=== PATIENT | female | born 1990 | race Caucasian/White ===

== ENCOUNTER 2016-04-19 20:10 | Emergency (ER) | payer OTHER ==
[~2016-04-19 20:10] MED LIST: IBUPROFEN800 M1 PO; MEDROL4 M2 PO; VICODIN 5-3001 EACH PO
--- NOTE | 2016-04-19 21:44 | ED HAND/WRIST INJURY COMPLAINT ---
History of Present Illness General Chief Complaint: Upper Extremity Injury Stated Complaint: DOG BITE TO LEFT WRIST UNABLE TO MOVE Source: patient Exam Limitations: no limitations Vital Signs & Intake/Output Vital Signs & Intake/Output Vital Signs Date Time Temp Pulse Resp B/P Pulse O2 O2 Flow FiO2 Ox Delivery Rate 04/19 2227 97.8 80 18 128/72 98 Room Air 04/19 2019 80 22 132/76 98 Allergies Coded Allergies: NO KNOWN ALLERGIES (06/16/15) Reconcile Medications Amoxicillin/Potassium Clav (Augmentin 875-125 Tablet) 875 MG-125 MG TABLET 1 TAB PO BID dog bite prophylaxis Hydrocodone/Acetaminophen (Vicodin 5-300 MG Tablet) 1 EACH TABLET 1 TAB PO Q6HR PRN PAIN Ibuprofen 800 MG TABLET 1 TAB PO Q8 PRN PAIN Ibuprofen 800 MG TABLET 1 TAB PO TID PRN PAIN Methylprednisolone. (Medrol) 4 MG TAB.DS.PK 1 DP PO AD FOOT PAIN 6 on day 1 then reduce by one tablet daily until gone Triage Note: PER PT BIT BY OWN DOG DOWN TO BONE OF L WRIST PER PT TEETH DOWN TO BONE, PUPPY IS ABOUT 11 MONTHS OLD VERY FINE SUPERFICIAL [place] TO L WRIST. PER PT DOG IS UPD. PT UNSURE OF TETANUS. LMP 1.5-2 WEEKS AGO Triage Nurses Notes Reviewed? yes : No Patient currently breastfeeds: No HPI: Patient is a 25-year-old female presents complaining of left wrist pain status post dog bite injury. Patient reports her dog bit her this evening. Pain is throbbing pain currently severe, worsens with movement and palpation. Patient reports that her dog weighs approximately 40 pounds, was chewing on something that wasn't supposed to when she went to take it when the dog bit her. Patient' s jaw locked onto the patient's wrist when this occurred. Patient is right-hand dominant. Last tetanus immunization was within the last 5 years. Dog is up-to- date with its rabies vaccinations. (DEBORAH DAS,LUIS) Past History Travel History Traveled to [place] past 21 day No Medical History Any Pertinent Medical History? see below for history Neurological: NONE EENT: NONE Cardiovascular: NONE Respiratory: asthma Gastrointestinal: irritable bowel syndrome Hepatic: NONE Renal: NONE Musculoskeletal: NONE Psychiatric: bipolar disease, depression Endocrine: NONE Blood Disorders: NONE Cancer(s): NONE Surgical History Surgical History: non-contributory Psychosocial History What is your primary language Qatari Tobacco Use: Never used Family History Hx Contributory? No (LUIS BONILLA) Review of Systems Review of Systems Constitutional: Reports: no symptoms. EENTM: Reports: no symptoms. Cardiovascular: Denies: chest pain. GI: Denies: abdominal pain. Musculoskeletal: Reports: see HPI. Denies: back pain, neck pain. Skin: Reports: see HPI. Neurological/Psychological: Denies: numbness. Hematologic/Endocrine: Denies: bruising. Immunologic/Allergic: Denies: splenectomy. (LUIS BONILLA) Physical Exam Physical Exam General Appearance: well developed/nourished, alert, awake Head: atraumatic, normal appearance Eyes: Bilateral: normal appearance. Ears, Nose, Throat: hearing grossly normal Neck: normal inspection, full range of motion Cardiovascular/Respiratory: no respiratory distress Back: normal inspection, normal range of motion Wrist Left: multiple abrasions to the left wrist anteriorly and posteriorly. Left wrist tenderness. Full range of motion. Hand Left: normal inspection, normal range of motion Hand Right: normal inspection, normal range of motion Neurologic/Tendon: normal sensation, normal motor functions, normal tendon functions Skin: warm/dry (LUIS BONILLA) Progress Differential Diagnosis: laceration, fracture, nerve injury Plan of Care: Orders Procedure Date/time Status Durable Medical Equipment 04/19 2214 Active Multiple abrasions to left wrist, minimal area of open skin. No sutures indicated. Results of x-ray discussed with patient and her mother. (LUIS BONILLA) Diagnostic Imaging: Discussed w/RAD: Radiology Read. Radiology Impression: PATIENT: JOSEPH HALLMAN PRESENT AGE: 25 PATIENT ACCOUNT NO: [id number] : 89 LOCATION: [facility] ORDERING PHYSICIAN: LUIS DAS SERVICE DATE: 04/19/16 EXAM TYPE: RAD - XRY-WRIST COMPLETE-LEFT EXAMINATION: XR WRIST, LEFT CLINICAL INFORMATION: Dog bite. COMPARISON: None TECHNIQUE: Four views of the left wrist. FINDINGS: No radiopaque foreign body. No air in the soft tissue. Bone and joints are normal. IMPRESSION: No acute abnormality of left wrist. DICTATED BY: ODALIS FOSTER MD DATE/TIME DICTATED:04/19/162202 DENTAL AIDE:RAD.[email or web address] DATE/TIME TRANSCRIBED:04/19/162202 CONFIDENTIAL, DO NOT COPY WITHOUT APPROPRIATE AUTHORIZATION. <Electronically signed in Other Vendor System> SIGNED BY: ODALIS FOSTER MD 04/19/162206 (LUIS BONILLA) Departure Departure Time of Disposition: 2215 Disposition: HOME OR SELF CARE Condition: Stable Clinical Impression Primary Impression: Dog bite of wrist Qualifiers: Encounter type: initial encounter Laterality: left Qualified Codes: S61.552A - Open bite of left wrist, initial encounter; W54.0XXA - Bitten by dog, initial encounter Referrals: EDWIN GARCIA MD (PCP/Family) Additional Instructions: Take Augmentin as directed. Rest, ice for 20 minutes 4-5 times a day, elevate, bacitracin to the areas of open skin, wear wrist splint for support. Return to the emergency department if redness spreading from the wounds, pus from the wounds, fevers, increasing pain, worsening of symptoms. Departure Forms: Customer Survey General Discharge Information Prescriptions: Current Visit Scripts Amoxicillin/Potassium Clav (Augmentin 875-125 Tablet) 1 TAB PO BID #14 TAB Ibuprofen 1 TAB PO Q8 PRN PAIN #20 TAB (LUIS BONILLA) PA/ENGINEERING TECHNICAL SPECIALIST Co-Sign Statement Statement: ED Attending supervision documentation- [] I saw and evaluated the patient. I have also reviewed all the pertinent lab results and diagnostic results. I agree with the findings and the plan of care as documented in the PA's/ENGINEERING TECHNICAL SPECIALIST's documentation. x I have reviewed the ED Record and agree with the PA's/ENGINEERING TECHNICAL SPECIALIST's documentation. [] Additions or exceptions (if any) to the PAs/ENGINEERING TECHNICAL SPECIALIST's note and plan are summarized below: [] (ASIA SELLERS,SHARLENE)
--- NOTE | 2016-04-19 22:07 | RADIOLOGY REPORT ---
EXAMINATION: XR WRIST, LEFT CLINICAL INFORMATION: Dog bite. COMPARISON: None TECHNIQUE: Four views of the left wrist. FINDINGS: No radiopaque foreign body. No air in the soft tissue. Bone and joints are normal. IMPRESSION: No acute abnormality of left wrist.
[2016-04-19] MEDS ORDERED: AUGMENTIN 875-1 EACH PO (22:17)
[2016-04-19] MEDS ORDERED: IBUPROFEN800 M1 PO (22:17)
[2016-04-19 22:28] VITALS: BP 128/72
== END 2016-04-19 22:30 ==
LOC: ERH 20:10
DX: S61.552A Open bite of left wrist, initial encounter (principal); W54.0XXA Bitten by dog, initial encounter
CPT/HCPCS: 73110-LT

== ENCOUNTER 2017-10-17 14:03 | Emergency (ER) | payer OTHER ==
[~2017-10-17] VITALS: Ht 167.6 cm; Wt 83.9 kg
[~2017-10-17 14:03] MED LIST changes: +AUGMENTIN 875-1 EACH PO
[2017-10-17 14:45] LABS: ABSOLUTE BASOPHIL COUNT 0 /CUMM (0.0-0.2); ABSOLUTE EOSINOPHIL COUNT 0.1 /CUMM (0.0-0.7); ABSOLUTE GRANULOCYTE CT 6.5 /CUMM (1.4-6.5); ABSOLUTE LYMPH COUNT 2.3 /CUMM (1.2-3.4); ABSOLUTE MONOCYTE COUNT 0.4 /CUMM (0.10-0.60); BASOPHIL % 0.5 % (0.0-2.0); EOSINOPHIL % 1.3 % (0-5); GRANULOCYTE % 69.4 % (42.2-75.2); HEMATOCRIT 37.3 % (37-47); MEAN CORPUSCULAR HGB CONC 32.9 G/DL (33.0-37.0); MEAN CORPUSCULAR VOLUME 88.3 FL (81.0-99.0); MEAN PLATELET VOLUME 6.5 FL (7.4-10.4); PLATELET COUNT 334 /CUMM (130-400); RED BLOOD CELL CT 4.23 /CUMM (4.20-5.40); WHITE BLOOD CELL COUNT 9.4 /CUMM (4.8-10.8)
--- NOTE | 2017-10-17 15:03 | ED GI/GU/ABDOMINAL COMPLAINT ---
History of Present Illness General Chief Complaint: Abdominal Pain/Flank Pain Stated Complaint: RIGHT SIDED ABD PAIN, X 10 HRS Source: patient Exam Limitations: no limitations Vital Signs & Intake/Output Vital Signs & Intake/Output Vital Signs Date Time Temp Pulse Resp B/P B/P Pulse O2 O2 Flow FiO2 Mean Ox Delivery Rate 10/17 1659 98.2 71 16 109/70 99 Room Air 10/17 1616 Room Air 10/17 1410 97.4 88 18 131/82 98 Room Air Allergies Coded Allergies: clindamycin (Intermediate, RASH 10/17/17) Reconcile Medications Albuterol Sulfate (Proair Hfa) 90 MCG HFA.AER.AD 2 PUF INH Q4-6 PRN PRN SHORTNESS OF BREATH (Reported) Fexofenadine HCl (Lu Allergy) 180 MG TABLET 1 TAB PO DAILY ALLERGIES ( Reported) Lactobacillus Acidophilus (Probiotic) 10 BILLION CELL CAPSULE 1 CAP PO DAILY GI (Reported) Lamotrigine (Lamictal) 200 MG TABLET 1 TAB PO DAILY MENTAL HEALTH (Reported) Mometasone/Formoterol (Dulera 100 Mcg/5 Mcg Inhaler) 100 MCG-5 MCG/ACTUATION HFA.AER.AD 2 PUF INH BID PRN SHORTNESS OF BREATH (Reported) Sertraline HCl (Zoloft) 50 MG TABLET 1 TAB PO DAILY MENTAL HEALTH (Reported) Triage Note: 27 YEAR OLD FEMALE WITH COMPLAINTS OF RLQ ABD PAIN THAT STARTED ABOUT 10 HOURS AGO AND HAS BEEN INCREASING IN INTENSITY. STATES THAT IF SHE PUSHES IN ON THAT SIDE THE PAIN GETS A LITTLE BETTER BUT WHEN SHE LETS GO SHE GETS A STABBING PAIN. COMPLAINS OF NAUSEA, DENIES URINARY SYMPTOMS, LAST ATE LAST PM BUT DRANK GINGERALE AROUND 1330. AFEBRILE AT THIS TIME Triage Nurses Notes Reviewed? yes ? n Is pt currently ? No Onset: Gradual Duration: hour(s): Timing: recent history Quality/Severity: moderate Location: right lower quadrant Radiation: no radiation HPI: 27-year-old female with hx of IBS presents to emergency department complaining of right lower quadrant abdominal pain 10 hours. Patient states that abdominal pain began early this morning in the middle of the night, the pain woke the patient up. It was described as sharp, stabbing. Patient went back to sleep and then woke up again related to her abdominal pain. Abdominal pain has stayed in the right lower quadrant, no radiation. Pain is gradually increasing in severity. Patient states that when she pushes on the right side the pain gets a little better but then when she lets go the pain worsens. Patient reports nausea however no vomiting. She has not eaten anything today, lack of appetite. Patient denies fevers, chills, diarrhea, urinary symptoms. Past History Travel History Traveled to [place] past 21 day No Medical History Any Pertinent Medical History? see below for history Neurological: NONE EENT: NONE Cardiovascular: NONE Respiratory: asthma Gastrointestinal: irritable bowel syndrome Hepatic: NONE Renal: NONE Musculoskeletal: NONE Psychiatric: bipolar disease, depression Endocrine: NONE Blood Disorders: NONE Cancer(s): NONE Surgical History Surgical History: non-contributory Psychosocial History What is your primary language [place] Tobacco Use: Never used ETOH Use: denies use Illicit Drug Use: denies illicit drug use Family History Hx Contributory? No Review of Systems Review of Systems Constitutional: Reports: no symptoms. EENTM: Reports: no symptoms. Respiratory: Reports: no symptoms. Cardiovascular: Reports: no symptoms. GI: Reports: see HPI. Genitourinary: Reports: no symptoms. Musculoskeletal: Reports: no symptoms. Skin: Reports: no symptoms. Neurological/Psychological: Reports: no symptoms. Hematologic/Endocrine: Reports: no symptoms. Immunologic/Allergic: Reports: no symptoms. All Other Systems: Reviewed and Negative Physical Exam Physical Exam General Appearance: well developed/nourished, no apparent distress, alert, awake Head: atraumatic, normal appearance Eyes: Bilateral: normal appearance. Ears, Nose, Throat, Mouth: hearing grossly normal Neck: normal inspection, supple, full range of motion Respiratory: normal breath sounds, no respiratory distress, lungs clear Cardiovascular: regular rate/rhythm Gastrointestinal: normal bowel sounds, soft, no organomegaly, RLQ tenderness with rebound, -Rosving's sign Back: normal inspection, normal range of motion Extremities: normal range of motion Neurologic/Psych: awake, alert, oriented x 3 Skin: intact, normal color, warm/dry Core Measures ACS in differential dx? No Sepsis Present: No Sepsis Focused Exam Completed? No Progress Differential Diagnosis: appendicitis, bowel obstruction, cholecystitis, ectopic , hernia, inflamm bowel dis, intrauterine , ovarian cyst, ovarian torsion, PID/cervicitis, SBO, UTI/pyelo Plan of Care: Orders Procedure Date/time Status Add-on Test (ER Only) 10/17 1501 Active C-REACTIVE PROTEIN 10/17 143 Complete URINE 10/17 142 Complete URINALYSIS 10/17 142 Complete LIPASE 10/17 142 Complete COMPREHENSIVE METABOLIC PANEL 10/17 142 Complete CBC WITHOUT DIFFERENTIAL 10/17 1421 Complete Laboratory Tests 10/17/17 1526: Urine Color STRAW, Urine Clarity CLEAR, Urine pH 6.0, Ur Specific [place] <= 1.005, Urine Protein NEG, Urine Ketones NEG, Urine Nitrite NEG, Urine Bilirubin NEG, Urine Urobilinogen 0.2, Ur Leukocyte Esterase NEG, Ur Microscopic SEDIMENT EXAMINED, Urine RBC RARE, Ur Epithelial Cells FEW, Urine Bacteria FEW H, Urine Hemoglobin SMALL H, Urine Glucose NEG, Urine Test NEGATIVE 10/17/17 1437: Anion Gap 9, Estimated GFR > 60, BUN/Creatinine Ratio 8.8, Glucose 85, Calcium 9.5, Total Bilirubin 0.6, AST 16, ALT 20, Alkaline Phosphatase 60, C-Reactive Prot, Quant < 0.5, Total Protein 6.9, Albumin 4.1, Globulin 2.8, Albumin/ Globulin Ratio 1.5, Lipase 81, CBC w Diff NO MAN DIFF REQ, RBC 4.23, MCV 88.3, MCH 29.0, MCHC 32.9 L, RDW 14.0, MPV 6.5 L, Gran % 69.4, Lymphocytes % 24.1, Monocytes % 4.7, Eosinophils % 1.3, Basophils % 0.5, Absolute Granulocytes 6.5, Absolute Lymphocytes 2.3, Absolute Monocytes 0.4, Absolute Eosinophils 0.1, Absolute Basophils 0 CT scan does not visualize the appendix however no inflammatory infectious changes in right lower quadrant to indicate acute appendicitis. Patient is afebrile, no leukocytosis, CRP is within normal limits. Low suspicion for acute appendicitis in this patient. SENIOR NURSE MANAGER anatomy within normal limits on CT imaging as well. Patient instructed to follow-up with her primary care doctor this week and was given strict return precautions for worsening symptoms. She agrees with plan of care. Discussed all findings with Dr. Stanley who agrees with this plan. Diagnostic Imaging: Viewed by Me: CT Scan. Discussed w/RAD: CT Scan. Radiology Impression: PATIENT: JOSEPH HALLMAN PRESENT AGE: 27 PATIENT ACCOUNT NO: [id number] : 89 LOCATION: [facility] ORDERING PHYSICIAN: Gini DAS SERVICE DATE: 10/17/17 EXAM TYPE: CAT - CT ABD & PELVIS W IV CONTRAST EXAMINATION: CT ABDOMEN AND PELVIS WITH CONTRAST CLINICAL INFORMATION: Right lower quadrant pain. Nausea. COMPARISON: None TECHNIQUE: Multidetector volumetric imaging was performed of the abdomen and pelvis following IV administration of 95 mL of Optiray 320 intravenous contrast. Sagittal and coronal reformatted images were obtained on the technologist's workstation. DLP: 472.79 mGy-cm FINDINGS: LUNG BASES: The visualized lung bases are unremarkable. LIVER, GALLBLADDER, AND BILIARY TREE: The liver is normal in size, shape, and attenuation. No focal hepatic lesion or biliary ductal dilatation is present. The gallbladder is unremarkable with no evidence of radiopaque gallstones, gallbladder wall thickening, or obvious pericholecystic inflammatory changes. PANCREAS: Unremarkable. SPLEEN: Unremarkable. ADRENAL GLANDS: Unremarkable. KIDNEYS AND URETERS: The kidneys are normal in size, shape , and attenuation. No hydronephrosis, hydroureter, or calculi seen. No perinephric stranding. BLADDER: Unremarkable. GASTROINTESTINAL TRACT: The small and large bowel are unremarkable. The appendix is not identified. There is no inflammation the mesentery. ABDOMINAL WALL: No significant hernia is appreciated. LYMPH NODES: Normal. VASCULAR: Unremarkable. PELVIC VISCERA: Unremarkable. OSSEOUS STRUCTURES: Is mild degenerative spondylosis of lower thoracic spine with disc height narrowing and endplate spurring of the vertebrae. No acute osseous abnormality. IMPRESSION: No significant abnormality. The appendix is not seen. There is no inflammation of the mesentery. There is no acute abnormality of the bowel. DICTATED BY: Grzegorz Hernandez MD DATE/TIME DICTATED: 10/17/171642 BUSINESS COORDINATOR:DUNCAN DATE/TIME TRANSCRIBED:10/17/171642 CONFIDENTIAL, DO NOT COPY WITHOUT APPROPRIATE AUTHORIZATION. <Electronically signed in Other Vendor System> SIGNED BY: Grzegorz Hernandez MD 10/17/17 4634 Initial ED EKG: none Departure Departure Disposition: HOME OR SELF CARE Condition: Stable Clinical Impression Primary Impression: Abdominal pain Qualifiers: Abdominal location: right lower quadrant Qualified Code: R10.31 - Right lower quadrant pain Referrals: Jose Small MD (PCP/Family) Additional Instructions: You may take tylenol or motrin as prescribed as needed for pain. Follow up with your CHIEF CLERK regarding your right sided pain, they may wish to perform an ultrasound. Return if you have any worsening symptoms or concerns. Please note that there might be incidental findings in your evaluation that are unrelated to the current emergency department visit. Please notify your primary care doctor about this emergency department visit in order to obtain and review all of the testing performed so that these incidental findings can be monitored as needed. If you had an x-ray performed, please understand that some fractures may not be seen on the initial set of x-rays. If your symptoms persist you might need a repeat set of x-rays to check for such a fracture. If you had a laceration evaluated, please understand that foreign bodies such as glass or wood may not be visible to the naked eye or on plain x-rays. If the wound becomes red, swollen, increasingly more painful or if there is any drainage from the wound, please have it reevaluated by a physician for the possibility of a retained foreign body. If you're unable to follow up as outlined in the discharge instructions please return to the emergency department. Thank you for choosing the [facility] Emergency Department for your care. It was a pleasure to serve you today. Departure Forms: Customer Survey General Discharge Information
[2017-10-17] MEDS ORDERED: ZOLOFT50 M1 PO (15:25)
[2017-10-17] MEDS ORDERED: LAMICTAL200 M1 PO (15:25)
[2017-10-17] MEDS ORDERED: PROBIOTIC1 EACH PO (15:26)
[2017-10-17] MEDS ORDERED: PROAIR HFA8.5 GM INH (15:26)
[2017-10-17] MEDS ORDERED: ALLEGRA ALLERG180 M1 PO (15:26)
[2017-10-17] MEDS ORDERED: DULERA 100 MCG/13 GM INH (15:27)
--- NOTE | 2017-10-17 16:50 | CT SCAN REPORT ---
EXAMINATION: CT ABDOMEN AND PELVIS WITH CONTRAST CLINICAL INFORMATION: Right lower quadrant pain. Nausea. COMPARISON: None TECHNIQUE: Multidetector volumetric imaging was performed of the abdomen and pelvis following IV administration of 95 mL of Optiray 320 intravenous contrast. Sagittal and coronal reformatted images were obtained on the technologist's workstation. DLP: 472.79 mGy-cm FINDINGS: LUNG BASES: The visualized lung bases are unremarkable. LIVER, GALLBLADDER, AND BILIARY TREE: The liver is normal in size, shape, and attenuation. No focal hepatic lesion or biliary ductal dilatation is present. The gallbladder is unremarkable with no evidence of radiopaque gallstones, gallbladder wall thickening, or obvious pericholecystic inflammatory changes. PANCREAS: Unremarkable. SPLEEN: Unremarkable. ADRENAL GLANDS: Unremarkable. KIDNEYS AND URETERS: The kidneys are normal in size, shape, and attenuation. No hydronephrosis, hydroureter, or calculi seen. No perinephric stranding. BLADDER: Unremarkable. GASTROINTESTINAL TRACT: The small and large bowel are unremarkable. The appendix is not identified. There is no inflammation the mesentery. ABDOMINAL WALL: No significant hernia is appreciated. LYMPH NODES: Normal. VASCULAR: Unremarkable. PELVIC VISCERA: Unremarkable. OSSEOUS STRUCTURES: Is mild degenerative spondylosis of lower thoracic spine with disc height narrowing and endplate spurring of the vertebrae. No acute osseous abnormality. IMPRESSION: No significant abnormality. The appendix is not seen. There is no inflammation of the mesentery. There is no acute abnormality of the bowel.
[2017-10-17 16:59] VITALS: BP 109/70
== END 2017-10-17 17:42 ==
LOC: ERH 14:03
PROVIDERS: Physician Assistant
DX: R10.31 Right lower quadrant pain (principal); R11.0 Nausea; K58.9 Irritable bowel syndrome, unspecified; J45.909 Unspecified asthma, uncomplicated
CPT/HCPCS: 74177; 81001; 81025; 96374; 96375; J1885; J2405